=== PATIENT | female | born 1965 | race Caucasian/White ===

== ENCOUNTER 2017-02-07 09:09 | Emergency (ER) | payer BC ==
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
[2017-02-07 10:32] VITALS: BP 127/75; PULSE 87; RESP 16; TEMP 97.1
== END 2017-02-07 10:33 | disposition home or self-care (01) ==
LOC: EC 09:09
DX: S00.12XA Contusion of left eyelid and periocular area, initial encounter (principal); R51 Headache; W20.8XXA Other cause of strike by thrown, projected or falling object, initial encounter; Y93.89 Activity, other specified
CPT/HCPCS: 70450; 70486; 72125; 99283

== ENCOUNTER → 2017-02-12 | Outpatient (CLI) | payer BC ==
--- NOTE | 2017-02-13 11:37 | CONS ---
Primary care physician: Dr. Ng REASON FOR CONSULTATION: Sleep apnea. This is a 51-year-old female patient coming in with chief complaint of poor sleep quality. The patient goes to bed around 11 o'clock, wakes up 7 o'clock in the morning and despite averaging around 6 to 8 hours of sleep, she wakes up excessively fatigued and tired. She snores at night and when she has been told to stop breathing by family members. She occasionally grinds her teeth. No recent weight gain or weight loss. No falling asleep while driving. No history of any motor vehicle accidents. No vivid dreams. No hallucinations. No cataplexy. Weight has been stable at around 160. She does not smoke. She does not drink alcohol. No history of any substance abuse. Negative family history of sleep apnea. She has had a single episode of seizure many years back without any evidence of recurrence and currently she is not taking any antiepileptic medications. His past medical history: 1. Seizure disorder, single episode, on no treatment. 2. Bruxism, wearing a bite guard. Surgical history: and uterine ablation. Drug allergies are not known. Outpatient Medications: none. SOCIAL HISTORY: Nonsmoker. No history of alcohol. No history of IV drugs. FAMILY HISTORY: Negative for obstructive sleep apnea. There is remote history of first cousin with obstructive sleep apnea only. OCCUPATION HISTORY: She works in [employer]. REVIEW OF SYSTEMS: 12 point review of systems was done. All of the positive findings were mentioned above in the history of present illness. BP 129/81. Pulse 66, respiratory rate 16, temperature 98.2, saturation 96% on room air. Weight is 184. Height 5 feet 3 inches and neck size 13 and one half quarter inches. BMI 32.7. General appearance: Calm, comfortable. HEENT: Short neck, crowding of posterior pharynx, Mallampati Class IV with no goiter. No neck masses. Lungs clear to auscultation. Heart sounds are regular rate and rhythm, normal S1, S2. Abdomen soft, nontender, no organomegaly. Extremities: No edema, cyanosis or clubbing. IMPRESSION: 1. Obstructive sleep apnea suspected currently under investigation. 2. Bruxism, wearing a bite guard. 3. Single episode of seizures approximately a year ago undergoing no treatment. PLAN: 1. Proceed with a home sleep study looking for any significant sleep apnea. 2. Encourage weight loss. 3. We will follow. [facility]
== END ==
LOC: SLEEP 14:10
PROVIDERS: ATTEND Internal Medicine Critical Care Medicine
DX: G47.33 Obstructive sleep apnea (adult) (pediatric) (principal); G47.63 Sleep related bruxism
CPT/HCPCS: 99211

== ENCOUNTER → 2017-04-08 | Outpatient (CLI) | payer BC ==
--- NOTE | 2017-04-09 08:47 | MM ---
Reason for exam: screening (asymptomatic). Last mammogram was performed 1 year ago. History: Family history of breast cancer in paternal cousin at age 52. Took hormonal contraceptives for 10 years. Physical Findings: A clinical breast exam by your physician is recommended on an annual basis and results should be correlated with mammographic findings. MG Screening Mammo w CAD Bilateral CC and MLO view(s) were taken. Prior study comparison: April 05, 2016, bilateral MG screening mammo w CAD. April 04, 2015, bilateral MG screening mammo w CAD. There are scattered fibroglandular densities. No significant changes when compared with prior studies. ASSESSMENT: Benign, BI-RAD 2 RECOMMENDATION: Routine screening mammogram of both breasts in 1 year.
== END | disposition home or self-care (01) ==
LOC: RADMAMWWP 07:58
PROVIDERS: ATTEND Obstetrics & Gynecology
DX: Z12.31 Encounter for screening mammogram for malignant neoplasm of breast (principal)

== ENCOUNTER → 2017-05-07 | Outpatient (CLI) | payer BC ==
--- NOTE | 2017-05-07 19:49 | PN ---
PROGRESS NOTE Beth is doing well. No specific complaints. She is coming in for a CPAP compliancy check. The patient was diagnosed having obstructive sleep apnea which is mild with an AHI of 9. She was given an auto CPAP unit which is being utilized through an AirFit P10 nose pillow. Her treatment has been successful. The patient is wearing her CPAP every night. AHI while on treatment is down to 2.1. Her leak factor is only 10 L/minute. Her P90 pressure is at 10.4. She has been averaging around 6.4 hours of CPAP use every night. She is benefitting from the treatment. Snoring has completely subsided and she has got more energy and more improved level of alertness. Her [place] score is down to 2. She is trying to lose weight in addition. PHYSICAL EXAMINATION: BP is 128/90, pulse 80, respirations 16, temperature 97.6, saturation 98% on room air. Weight is 190. GENERAL APPEARANCE: Calm, comfortable. LUNGS: Diminished otherwise clear. HEART: Sounds regular rate rhythm. Normal S1, S2. No S3, S4. No murmurs. Abdomen is soft, nontender. No organomegaly. EXTREMITIES: No edema. No cyanosis or clubbing. HEAD: Atraumatic, normocephalic. NECK: Mallampati class IV. There is no goiter or neck masses. NEURO EXAM: She has no focal neurological deficits. IMPRESSION: 1. Obstructive sleep apnea. Mild obstructive sleep apnea with AHI of 9, currently on CPAP therapy with automatic unit with a minimum pressure of 5 and a maximum pressure of 20. 2. Bruxism, history of. 3. Seizure activity, history of. PLAN: Treatment is successful. Continue same CPAP pressure setting. Encourage weight loss. The patient is benefitting from the treatment. Treatment was successful. We will continue to follow. MMODL / IJN: [id number] /
== END ==
LOC: SLEEP 16:09
PROVIDERS: ATTEND Internal Medicine Critical Care Medicine
DX: G47.33 Obstructive sleep apnea (adult) (pediatric) (principal); R56.9 Unspecified convulsions; G47.63 Sleep related bruxism

== ENCOUNTER → 2017-09-25 | Outpatient (CLI) | payer BC ==
--- NOTE | 2017-09-25 13:28 | BD ---
EXAMINATION TYPE: MG DEXA axial skeleton. DATE OF EXAM: 09/25/2017 COMPARISON: NONE CLINICAL HISTORY: Height: 5 FT 3 IN Weight: 201 FRAX RISK QUESTIONS: Alcohol (3 or more units per day): NO Family History (Parent hip fracture): NO Glucocorticoids (More than 3mos): NO (Ex: prednisone, prednisolone, methylprednisolone, dexamethasone, and hydrocortisone). History of Fracture in Adulthood: NO Secondary Osteoporosis: 1. Type 1 Diabetes: NO 2. Hyperthyroidism: NO 3. Menopause before 45: NO 4. Malnutrition: NO 5. Chronic liver disease: NO Rheumatoid Arthritis: NO Current Tobacco Use: NO RISK FACTORS HISTORY OF: Family History of Osteoporosis: YES Active: YES Postmenopausal woman: If Premenopausal, do you have irregular periods: ABLASION AGE 45 MEDICATIONS: Additional History: NONE EXAM MEASUREMENTS: Bone mineral densitometry was performed using the Nanali System. Bone mineral density as measured about the Lumbar spine is: ----- L1-L4(G/cm2): 1.137 T Score Values are as follows: ----- L2: -0.5 ----- L3: 0.0 ----- L4: -0.6 ----- L1-L4: -0.4 BASELINE Bone mineral density about the R hip (g/cm2): 0.880 Bone mineral density about the L hip (g/cm2): 0.955 T Score values are as follows: -----R Neck: -1.1 -----L Neck: -0.6 -----R Total: 0.3 -----L Total: 0.6 BASELINE IMPRESSION: Normal (Values between +1 and -1 indicate normal bone mass). Consider repeating this study in 5 year s or sooner if there is some new clinical indication. NOTE: T-SCORE=SD OF THE YOUNG ADULT MEAN.
== END | disposition home or self-care (01) ==
LOC: RADBDWWP 07:03
PROVIDERS: ATTEND Family Medicine
DX: Z13.220 Encounter for screening for lipoid disorders (principal); Z78.0 Asymptomatic menopausal state
CPT/HCPCS: 77080

== ENCOUNTER → 2018-04-09 | Outpatient (CLI) | payer BC ==
--- NOTE | 2018-04-10 11:03 | MM ---
Reason for exam: screening (asymptomatic). Last mammogram was performed 1 year ago. History: Family history of breast cancer in paternal cousin at age 52. Took hormonal contraceptives for 10 years. Physical Findings: A clinical breast exam by your physician is recommended on an annual basis and results should be correlated with mammographic findings. MG 3D Screening Mammo W/Cad Bilateral CC and MLO view(s) were taken. Prior study comparison: April 08, 2017, bilateral MG screening mammo w CAD. April 05, 2016, bilateral MG screening mammo w CAD. There are scattered fibroglandular densities. No suspicious abnormality. No significant changes when compared with prior studies. ASSESSMENT: Negative, BI-RAD 1 RECOMMENDATION: Routine screening mammogram of both breasts in 1 year.
== END | disposition home or self-care (01) ==
LOC: RADMAMWWP 10:49
PROVIDERS: ATTEND Family Medicine
DX: Z12.31 Encounter for screening mammogram for malignant neoplasm of breast (principal)
CPT/HCPCS: 77063; 77067

== ENCOUNTER → 2018-10-23 | Outpatient (CLI) | payer BC | LOC: LABWHC1 10:10 | PROVIDERS: ATTEND Family Medicine | DX: Z11.59 Encounter for screening for other viral diseases (principal) | CPT/HCPCS: 36415; 86735; 86762; 86765 ==

== ENCOUNTER → 2019-04-10 | Outpatient (CLI) | payer BC ==
--- NOTE | 2019-04-13 13:37 | MM ---
Reason for exam: screening (asymptomatic). Last mammogram was performed 1 year ago. History: Family history of breast cancer in paternal cousin at age 52. Took hormonal contraceptives for 10 years. Physical Findings: A clinical breast exam by your physician is recommended on an annual basis and results should be correlated with mammographic findings. MG 3D Screening Mammo W/Cad Bilateral CC and MLO view(s) were taken. Prior study comparison: April 09, 2018, bilateral MG 3d screening mammo w/cad. April 08, 2017, bilateral MG screening mammo w CAD. There are scattered fibroglandular densities. No significant changes when compared with prior studies. ASSESSMENT: Benign, BI-RAD 2 RECOMMENDATION: Routine screening mammogram of both breasts in 1 year.
== END | disposition home or self-care (01) ==
LOC: RADMAMWWP 07:58
PROVIDERS: ATTEND Obstetrics & Gynecology
DX: Z12.31 Encounter for screening mammogram for malignant neoplasm of breast (principal); Z80.3 Family history of malignant neoplasm of breast
CPT/HCPCS: 77063; 77067

== ENCOUNTER → 2020-08-25 | Outpatient (CLI) | payer BC ==
--- NOTE | 2020-08-25 12:28 | MM ---
Reason for exam: screening (asymptomatic). Last mammogram was performed 1 year and 5 months ago. History: Family history of breast cancer in paternal cousin at age 52. Took hormonal contraceptives for 10 years. Physical Findings: A clinical breast exam by your physician is recommended on an annual basis and results should be correlated with mammographic findings. MG 3D Screening Mammo W/Cad Bilateral CC and MLO view(s) were taken. Prior study comparison: April 10, 2019, bilateral MG 3d screening mammo w/cad. April 09, 2018, bilateral MG 3d screening mammo w/cad. There are scattered fibroglandular densities. There is no discrete abnormality. ASSESSMENT: Negative, BI-RAD 1 RECOMMENDATION: Routine screening mammogram of both breasts in 1 year.
== END ==
LOC: RADMAMWWP 08:44
PROVIDERS: ATTEND Family Medicine
DX: Z12.31 Encounter for screening mammogram for malignant neoplasm of breast (principal); Z80.3 Family history of malignant neoplasm of breast
CPT/HCPCS: 77063; 77067

== ENCOUNTER → 2020-09-01 | Outpatient (CLI) | payer BC ==
[2020-09-01 09:14] LABS: Basophils % (A) 1 %; Eosinophils # (A) 0.1 k/uL (0-0.7); Eosinophils % (A) 2 %; HCT 37.9 % (34.0-46.0); HGB 13.3 gm/dL (11.4-16.0); Lymphocytes # (A) 0.7 k/uL (1.0-4.8); Lymphocytes % (A) 17 %; MCH 29.6 pg (25.0-35.0); MCV 84.6 fL (80.0-100.0); Monocytes # (A) 0.3 k/uL (0-1.0); Monocytes % (A) 6 %; Neutrophils % (A) 72 %; Platelet Count 185 k/uL (150-450); RBC 4.48 m/uL (3.80-5.40); RDW 12.7 % (11.5-15.5); WBC 4.2 k/uL (3.8-10.6)
[2020-09-01 09:21] LABS: ALT 17 U/L (4-34); AST 21 U/L (14-36); African American GFR (CKD) >90 (>60 ml/min/1.73 sqM); Albumin 4.4 g/dL (3.5-5.0); Alkaline Phosphatase 51 U/L (38-126); Anion Gap 12 mmol/L; Blood Urea Nitrogen 11 mg/dL (7-17); Calcium 9.4 mg/dL (8.4-10.2); Carbon Dioxide 25 mmol/L (22-30); Chloride 101 mmol/L (98-107); Cholesterol 214 mg/dL (<200); Glucose 102 mg/dL (74-99); HDL Cholesterol 66 mg/dL (40-60); LDL Cholesterol,Calculated 126 mg/dL (0-99); Non-African American GFR(CKD) >90 (>60 ml/min/1.73 sqM); Potassium 4.4 mmol/L (3.5-5.1); Sodium 138 mmol/L (137-145); Total Bilirubin 0.4 mg/dL (0.2-1.3); Total Protein 6.7 g/dL (6.3-8.2); Triglycerides 109 mg/dL (<150)
== END | disposition home or self-care (01) ==
LOC: RADBDWWP 07:50
PROVIDERS: ATTEND Family Medicine
DX: Z00.00 Encounter for general adult medical examination without abnormal findings (principal)
CPT/HCPCS: 80053; 80061; 84443; 85025

== ENCOUNTER 2020-10-20 10:30 | Emergency (ER) | payer BC ==
--- NOTE | 2020-10-20 10:58 | ED ---
General Adult HPI - General Chief complaint: Chest Pain Stated complaint: Chest pain/sob/high heart rate Time Seen by Provider: 10/20/20 10:48 Source: patient Mode of arrival: ambulatory - History of Present Illness Initial comments: Dictation was produced using Purple dictation software. please excuse any grammatical, word or spelling errors. This patient was cared for during a federal and state declared state of emergency secondary to Covid 19 Chief Complaint: 55-year-old female presents to the emergency department for palpitations History of Present Illness: Patient is a 55-year-old female she has past nuchal history of hypertension. She takes antihypertensive medications. She states her last week she's been having episodes of palpitations. Patient states she is also short of breath. She didn't measure her heart rate at home with measurements as high as 150 with minimal exertion. She has no pain complaints. Denies any abdominal pain. No history of blood clots. She denies any work show any symptoms. Denies any constitutional symptoms The ROS documented in this emergency department record has been reviewed and confirmed by me. Those systems with pertinent positive or negative responses have been documented in the HPI. All other systems are other negative and/or noncontributory. PHYSICAL EXAM: General Impression: Alert and oriented x3, not in acute distress HEENT: Normocephalic atraumatic, extra-ocular movements intact, pupils equal and reactive to light bilaterally, mucous membranes moist. Cardiovascular: Tachycardic Chest: Able to complete full sentences, no retractions, no tachypnea, lungs clear to auscultation bilaterally Abdomen: abdomen soft, non-tender, non-distended, no organomegaly Musculoskeletal: Pulses present and equal in all extremities, no peripheral edema Motor: no focal deficits noted Neurological: CN II-XII grossly intact, no focal motor or sensory deficits noted Skin: Intact with no visualized rashes Psych: Anxious, tearful ED course: 55-year-old feel presents emergency department for palpitations. Vital signs upon arrival shows heart rate of 150, rest of vital signs within acceptable limits. EKG shows a heart rate of 135 with sinus tachycardia. There is S1 q 3 T3 that is new compared to most recent EKG. History was obtained from patient. She states that she lost 32 pounds since June. She's been aggressively dieting. States that she has been trying to hydrate herself as best she can. Laboratory evaluation obtained. CBC, coag panel, remote panel was obtained. Labs are mostly unremarkable except for some mild anion gap acidosis. Given patient's progressive weight loss is likely secondary to dehydration and starvation ketoacidosis. Patient reevaluated at bedside with stable heart rate. CT angiogram of the chest shows no PE or any other acute processes. At this point patient told to hydrate herself better perhaps take a break from weight loss. Patient was cleared for discharge per she is advised follow-up with PCP for outpatient management of her symptoms. EKG interpretation: Ventricular rate 135, sinus tachycardia, NE interval 114, QRS 90, QTC 468. No NE prolongation, no QTC prolongation, no ST or T-wave changes noted. - Related Data Home Medications Medication Instructions Recorded Confirmed ALPRAZolam [Xanax] 0.25 mg PO TID PRN 10/20/20 10/20/20 Lisinopril-Hctz 20-12.5 mg 1 tab PO DAILY 10/20/20 10/20/20 [Zestoretic 20-12.5] Allergies Allergy/AdvReac Type Severity Reaction Status Date / Time No Known Allergies Allergy Verified 10/20/20 11:49 Review of Systems ROS Statement: Those systems with pertinent positive or pertinent negative responses have been documented in the HPI. ROS Other: All systems not noted in ROS Statement are negative. Past Medical History Past Medical History: Hypertension, Seizure Disorder History of Any Multi-Drug Resistant Organisms: None Reported Past Surgical History: Section, Tonsillectomy Past Psychological History: No Psychological Hx Reported Smoking Status: Never smoker Past Alcohol Use History: Occasional Past Drug Use History: None Reported Course Vital Signs 10/20/20 10/20/20 10/20/20 10:36 10:55 11:34 Temperature 97.8 F Pulse Rate 150 H 138 H 89 Respiratory 20 16 16 Rate Blood Pressure 137/94 137/91 115/78 O2 Sat by Pulse 100 99 99 Oximetry Medical Decision Making - Lab Data Result diagrams: 10/20/20 10:53 10/20/20 10:53 Lab Results 10/20/20 10/20/20 10/20/20 Range/Units 10:53 10:53 10:53 WBC 5.7 (3.8-10.6) k/uL RBC 5.33 (3.80-5.40) m/uL Hgb 16.2 H (11.4-16.0) gm/dL Hct 45.5 (34.0-46.0) % MCV 85.3 (80.0-100.0) fL MCH 30.3 (25.0-35.0) pg MCHC 35.5 (31.0-37.0) g/dL RDW 13.9 (11.5-15.5) % Plt Count 262 (150-450) k/uL MPV 7.1 Neutrophils % 67 % Lymphocytes % 23 % Monocytes % 5 % Eosinophils % 2 % Basophils % 1 % Neutrophils # 3.8 (1.3-7.7) k/uL Lymphocytes # 1.3 (1.0-4.8) k/uL Monocytes # 0.3 (0-1.0) k/uL Eosinophils # 0.1 (0-0.7) k/uL Basophils # 0.1 (0-0.2) k/uL PT 10.6 (9.0-12.0) sec INR 1.0 (<1.2) APTT 25.2 (22.0-30.0) sec Sodium 138 (137-145) mmol/L Potassium 4.0 (3.5-5.1) mmol/L Chloride 104 (98-107) mmol/L Carbon Dioxide 14 L (22-30) mmol/L Anion Gap 20 mmol/L BUN 5 L (7-17) mg/dL Creatinine 0.66 (0.52-1.04) mg/dL Est GFR (CKD-EPI)AfAm >90 (>60 ml/min/1.73 sqM) Est GFR (CKD-EPI)NonAf >90 (>60 ml/min/1.73 sqM) Glucose 95 (74-99) mg/dL Calcium 10.0 (8.4-10.2) mg/dL Magnesium 1.8 (1.6-2.3) mg/dL Total Bilirubin 0.5 (0.2-1.3) mg/dL AST 20 (14-36) U/L ALT 14 (4-34) U/L Alkaline Phosphatase 83 (38-126) U/L Troponin I (0.000-0.034) ng/mL Total Protein 8.1 (6.3-8.2) g/dL Albumin 5.2 H (3.5-5.0) g/dL TSH 0.971 (0.465-4.680) mIU/L 10/20/20 Range/Units 10:53 WBC (3.8-10.6) k/uL RBC (3.80-5.40) m/uL Hgb (11.4-16.0) gm/dL Hct (34.0-46.0) % MCV (80.0-100.0) fL MCH (25.0-35.0) pg MCHC (31.0-37.0) g/dL RDW (11.5-15.5) % Plt Count (150-450) k/uL MPV Neutrophils % % Lymphocytes % % Monocytes % % Eosinophils % % Basophils % % Neutrophils # (1.3-7.7) k/uL Lymphocytes # (1.0-4.8) k/uL Monocytes # (0-1.0) k/uL Eosinophils # (0-0.7) k/uL Basophils # (0-0.2) k/uL PT (9.0-12.0) sec INR (<1.2) APTT (22.0-30.0) sec Sodium (137-145) mmol/L Potassium (3.5-5.1) mmol/L Chloride (98-107) mmol/L Carbon Dioxide (22-30) mmol/L Anion Gap mmol/L BUN (7-17) mg/dL Creatinine (0.52-1.04) mg/dL Est GFR (CKD-EPI)AfAm (>60 ml/min/1.73 sqM) Est GFR (CKD-EPI)NonAf (>60 ml/min/1.73 sqM) Glucose (74-99) mg/dL Calcium (8.4-10.2) mg/dL Magnesium (1.6-2.3) mg/dL Total Bilirubin (0.2-1.3) mg/dL AST (14-36) U/L ALT (4-34) U/L Alkaline Phosphatase (38-126) U/L Troponin I <0.012 (0.000-0.034) ng/mL Total Protein (6.3-8.2) g/dL Albumin (3.5-5.0) g/dL TSH (0.465-4.680) mIU/L Disposition Clinical Impression: Acidosis Disposition: HOME SELF-CARE Condition: Fair Instructions (If sedation given, give patient instructions): Dehydration (ED) Is patient prescribed a controlled substance at d/c from ED?: No Referrals: Feliciano Ng MD [Primary Care Provider] - 1-2 days Time of Disposition: 12:56
[2020-10-20 11:13] LABS: Basophils # (A) 0.1 k/uL (0-0.2); Basophils % (A) 1 %; Eosinophils # (A) 0.1 k/uL (0-0.7); Eosinophils % (A) 2 %; HCT 45.5 % (34.0-46.0); HGB 16.2 gm/dL (11.4-16.0); Lymphocytes # (A) 1.3 k/uL (1.0-4.8); Lymphocytes % (A) 23 %; MCH 30.3 pg (25.0-35.0); MCHC 35.5 g/dL (31.0-37.0); MCV 85.3 fL (80.0-100.0); Mean Platelet Volume 7.1; Monocytes # (A) 0.3 k/uL (0-1.0); Monocytes % (A) 5 %; Neutrophils # (A) 3.8 k/uL (1.3-7.7); Neutrophils % (A) 67 %; Platelet Count 262 k/uL (150-450); RBC 5.33 m/uL (3.80-5.40); RDW 13.9 % (11.5-15.5); WBC 5.7 k/uL (3.8-10.6)
[2020-10-20 11:16] LABS: Partial Thromboplastin Time 25.2 sec (22.0-30.0); Prothrombin Time 10.6 sec (9.0-12.0)
[2020-10-20 11:20] LABS: ALT 14 U/L (4-34); AST 20 U/L (14-36); African American GFR (CKD) >90 (>60 ml/min/1.73 sqM); Albumin 5.2 g/dL (3.5-5.0); Alkaline Phosphatase 83 U/L (38-126); Anion Gap 20 mmol/L; Blood Urea Nitrogen 5 mg/dL (7-17); Carbon Dioxide 14 mmol/L (22-30); Chloride 104 mmol/L (98-107); Glucose 95 mg/dL (74-99); Magnesium 1.8 mg/dL (1.6-2.3); Non-African American GFR(CKD) >90 (>60 ml/min/1.73 sqM); Sodium 138 mmol/L (137-145); Total Bilirubin 0.5 mg/dL (0.2-1.3); Total Protein 8.1 g/dL (6.3-8.2)
[2020-10-20] MEDS ORDERED: KETOROLAC 15 MG/ML 1 ML VIAL IVP STA (11:31)
[2020-10-20] MEDS ORDERED: SODIUM CHLORIDE 0.9% 1,000 ML IV STA (11:48)
--- NOTE | 2020-10-20 11:54 | CT ---
EXAMINATION TYPE: CT angio chest DATE OF EXAM: 10/20/2020 11:33 AM COMPARISON: CXR from 08/20/2011. HISTORY: SOB, Chest pain, Tachycardia CT DLP: 407.5 mGycm Automated exposure control for dose reduction was used. CONTRAST: CTA scan of the thorax is performed with IV Contrast, patient injected with 70 mL of Isovue 370, pulm onary embolism protocol. MIP images are created and reviewed. FINDINGS: LUNGS: The lungs are grossly clear, there is no concerning parenchymal mass or nodule identified. T here is no pleural effusion or pneumothorax seen. The tracheobronchial tree is patent. MEDIASTINUM: There is satisfactory enhancement of the pulmonary artery and its branches, there is no CT evidence for pulmonary embolism. Satisfactory enhancement of the aorta without aneurysm or dissect ion. There are no greater than 1 cm hilar or mediastinal lymph nodes. No cardiomegaly or pericardia l effusion is seen. OTHER: There is 1.3 cm low dense lesion right hepatic lobe favoring benign thin-walled cyst axial im age 89. IMPRESSION: No CT evidence for acute pulmonary embolism. No acute pulmonary process.
--- NOTE | 2020-10-20 12:42 | XR ---
EXAMINATION TYPE: XR chest 1V portable DATE OF EXAM: 10/20/2020 COMPARISON: Same day CTA chest study. Chest x-ray 2012 HISTORY: Tachycardia and shortness of breath. TECHNIQUE: Single AP portable frontal upright view of the chest is obtained. FINDINGS: There is no new Suspicious focal air space opacity, pleural effusion, or pneumothorax seen . Improved inspiration on current study. Overlying EKG leads redemonstrated. The cardiac silhouette size remains within normal limits. The osseous structures are intact. IMPRESSION: No acute process.
[2020-10-20 13:19] VITALS: BP 112/77; PULSE 76; RESP 18; TEMP 97.6
== END 2020-10-20 13:15 | disposition home or self-care (01) ==
LOC: EC 10:30
DX: E87.2 Acidosis (principal); I10 Essential (primary) hypertension; Z90.09 Acquired absence of other part of head and neck
CPT/HCPCS: 36415; 93005; 80053; 83735; 84443; 84484; 85025; 85610; 85730; 71045; 71275; 99285; 96374; J1885; Q9967

== ENCOUNTER → 2021-11-03 | Outpatient (CLI) | payer BC ==
--- NOTE | 2021-11-07 13:36 | MM ---
Reason for Exam: Screening (asymptomatic). Last mammogram was performed 1 year(s) and 2 month(s) ago. Patient History: Menarche at age 14. First Full-Term at age 31. Patient used Hormonal Contraceptives for 10 years. Paternal cousin had breast cancer, age 52. Film Views: Bilateral CC views were taken. Bilateral MLO views were taken. Prior Study Comparison: 04/09/2018 Bilateral Screening Mammogram, [facility]. 04/10/2019 Bilateral Screening Mammogram, [facility]. 08/25/2020 Bilateral Screening Mammogram, [facility]. Tissue Density: The breast tissue is almost entirely fat. Findings: Analyzed By CAD. No significant changes when compared with prior studies. Chronic nodularity in the left breast. Overall Assessment: Negative, BI-RAD 1 Management: Screening Mammogram of both breasts in 1 year.
== END | disposition home or self-care (01) ==
LOC: RADMAMWWP 08:14
PROVIDERS: ATTEND Family Medicine
DX: Z12.31 Encounter for screening mammogram for malignant neoplasm of breast (principal)
CPT/HCPCS: 77063; 77067

== ENCOUNTER → 2023-02-14 | Outpatient (CLI) | payer BC ==
--- NOTE | 2023-02-15 10:10 | MM ---
Reason for Exam: Screening (asymptomatic). Last mammogram was performed 1 year(s) and 3 month(s) ago. Patient History: Menarche at age 14. First Full-Term at age 31. Postmenopausal. Patient has history of breast feeding. Patient used Hormonal Contraceptives for 10 years. Paternal cousin had breast cancer, age 52. Risk Values: Claudia 5 year model risk: 1.3%. NCI Lifetime model risk: 9.1%. Prior Study Comparison: 04/05/2016 Bilateral Screening Mammogram, [facility]. 04/08/2017 Bilateral Screening Mammogram, [facility]. 04/09/2018 Bilateral Screening Mammogram, [facility]. 04/10/2019 Bilateral Screening Mammogram, [facility]. 08/25/2020 Bilateral Screening Mammogram, [facility]. 11/03/2021 Bilateral MG 3D screening mammo w/cad, [facility]. Tissue Density: The breast tissue is almost entirely fat. Findings: Analyzed By CAD. There is no suspicious group of microcalcifications or new suspicious mass in either breast. Overall Assessment: Negative, BI-RAD 1 Management: Screening Mammogram of both breasts in [address] [facility] will attempt to contact patient to return for supplemental views and ultrasound if indicated. Patient should continue monthly self-breast exams. A clinical breast exam by your physician is recommended on an annual basis. This exam should not preclude additional follow-up of suspicious palpable abnormalities. Note on Claudia scores and lifetime risk: 1. A Claudia score greater than 3% is considered moderate risk. If this is the case, consider specialist referral to assess eligibility for a risk reducing agent. 2. If overall lifetime risk for the development of breast cancer is 20% or higher, the patient may qualify for future screening with alternating mammogram and breast MRI. Electronically signed and approved by: Jamshid Arteaga DO
== END | disposition home or self-care (01) ==
LOC: RADMAMWWP 07:31
PROVIDERS: ATTEND Obstetrics & Gynecology
DX: Z12.31 Encounter for screening mammogram for malignant neoplasm of breast (principal); Z78.0 Asymptomatic menopausal state; Z80.3 Family history of malignant neoplasm of breast
CPT/HCPCS: 77063; 77067

== ENCOUNTER → 2024-06-03 | Outpatient (CLI) | payer BC ==
--- NOTE | 2024-06-07 05:11 | MM ---
Reason for Exam: Screening (asymptomatic). Last mammogram was performed 1 year(s) and 4 month(s) ago. Patient History: Menarche at age 14. First Full-Term at age 31. Postmenopausal. Patient has history of breast feeding. Patient used Hormonal Contraceptives for 10 years. Paternal cousin had breast cancer, age 52. Risk Values: Claudia 5 year model risk: 1.4%. NCI Lifetime model risk: 8.9%. Prior Study Comparison: 08/25/2020 Bilateral Screening Mammogram, [facility]. 11/03/2021 Bilateral MG 3D screening mammo w/cad, [facility]. 02/14/2023 Bilateral MG 3D screening mammo w/cad, [facility]. Tissue Density: There are scattered areas of fibroglandular density. Findings: Analyzed By CAD. The pattern is symmetrical. Nodularities in the upper outer left breast. No significant interval change is evident. No suspicious groups of microcalcifications, spiculated or lobular masses, architectural distortion or other secondary signs of malignancy are mammographically apparent. Overall Assessment: Benign, BI-RAD 2 Management: Screening Mammogram of both breasts in 1 year. A negative mammogram report should not preclude additional follow up of suspicious palpable abnormalities. Patient should continue monthly self breast exam. A clinical breast exam by your physician is recommended on an annual basis and results should be correlated with mammographic findings. Note on Claudia scores and lifetime risk: 1. A Claudia score greater than 3% is considered moderate risk. If this is the case, consider specialist referral to assess eligibility for a risk reducing agent. 2. If overall lifetime risk for the development of breast cancer is 20% or higher, the patient may qualify for future screening with alternating mammogram and breast MRI. [facility], , 06/07/2024 5:07 AM. Electronically signed and approved by: Apolinar High D.O. Radiologis
== END | disposition home or self-care (01) ==
LOC: RADMAMWWP 07:53
PROVIDERS: ATTEND Family Medicine
DX: Z12.31 Encounter for screening mammogram for malignant neoplasm of breast (principal); R92.323 Mammographic fibroglandular density, bilateral breasts; Z78.0 Asymptomatic menopausal state; Z80.3 Family history of malignant neoplasm of breast; Z92.0 Personal history of contraception
CPT/HCPCS: 77063; 77067